=== PATIENT | female | born 1980 | race Two or more races ===

== ENCOUNTER 2020-05-29 05:51 | Emergency (ER) | payer OTHER ==
[~2020-05-29] VITALS: Ht 165.1 cm; Wt 81.6 kg
[2020-05-29] MEDS ORDERED: DEXTROSE (50%) 50ML SYRG IV ONE (05:52)
[2020-05-29] MEDS ORDERED: EPINEPHrine HCL 1 MG/10 ML SYRG IV ONE (05:52)
[2020-05-29] MEDS ORDERED: ATROPINE SULF 1 MG/10ml SYR IV ONE (05:52)
[2020-05-29] MEDS ORDERED: SODIUM BICARBONATE 8.4 % INJ 50ML VIAL IV ONE (05:52)
== END 2020-05-29 05:59 ==
LOC: ER 05:51 → EDBD 05:51 → ER 05:59
DX: I46.9 Cardiac arrest, cause unspecified (principal)
CPT/HCPCS: 92950